=== PATIENT | female | born 1990 | race Caucasian/White ===

== ENCOUNTER 2018-06-18 07:06 | Inpatient (IN) | payer OTHER ==
[~2018-06-18] VITALS: Ht 160 cm; Wt 2.3 kg
[2018-06-18] MEDS ORDERED: PRENATAL TABLE1 EAC1 PO (08:35)
[2018-06-18] MEDS ORDERED: TYLENOL EXTRA500 MG PO (08:36)
[2018-06-21] MEDS ORDERED: CODE1TAB37 PO (10:29)
[2018-06-21] MEDS ORDERED: NAPR500T14 PO (10:29)
== END 2018-06-21 11:30 | disposition home or self-care (01) | DRG 766 ==
LOC: LDR 07:06 → O/R 06-19 08:02 → OB/GYN 06-19 13:52
PROVIDERS: Obstetrics & Gynecology
PROC: 10907ZC Drainage of Amniotic Fluid, Therapeutic from Products of Conception, Via Natural or Artificial Opening (ICD-10-PCS; 2018-06-18)
PROC: 4A033R1 Measurement of Arterial Saturation, Peripheral, Percutaneous Approach (ICD-10-PCS; 2018-06-18)
PROC: 4A1HXCZ Monitoring of Products of Conception, Cardiac Rate, External Approach (ICD-10-PCS; 2018-06-18)
PROC: 10D00Z1 Extraction of Products of Conception, Low, Open Approach (ICD-10-PCS; principal; 2018-06-18 21:00)
DX: O61.0 Failed medical induction of labor (principal); O30.023 Conjoined twin pregnancy, third trimester; Z37.2 Twins, both liveborn; Z3A.37 37 weeks gestation of pregnancy